=== PATIENT | male | born 1955 | race Caucasian/White ===

== ENCOUNTER 2021-04-20 09:32 | Day surgery (SDC) | payer MEDICARE, MEDICAID, SELFPAY ==
[2021-04-20 09:49] VITALS: BP 130/93; PULSE 83; RESP 16; TEMP 36.3; O2SAT 97
--- NOTE | 2021-04-20 09:56 | W.ANESPRE ---
General Info Date of Service Date Performed: 04/20/21 Height: 6 ft 1 in Weight: 108 kg Body Mass Index (BMI): 31.4 Surgical Procedure: Operation Date: 04/20/21 12:40 Proposed Procedures Side Surgeon p Cataract Extraction with IOL Implant Left Juan Calles MD Meds Allergies and Home Medications Allergies Allergy/AdvReac Type Severity Reaction Status Date / Time No Known Allergies Allergy Unverified 04/20/21 09:47 Home Medication Medication Instructions Recorded albuterol sulfate [ProAir HFA] 2 puff INHALATION Q3H PRN 04/16/21 famotidine 40 mg PO DAILY 04/16/21 ibuprofen 800 mg PO TID PRN 04/16/21 Current Visit Medications: Current Medications Generic Name Dose Route Start Last Admin Trade Name Freq PRN Reason Stop Dose Admin Acetaminophen 1,000 mg 04/20/21 06:00 Acetaminophen 500 Mg Tab PO Q4H PRN PRN Miscellaneous Medication 0 ml 04/20/21 06:00 Prednisolone 1%, Moxifloxacin 0.5%, Nepafenac 0.1% 5ml Btl OS DIRECTED BINTA Miscellaneous Medication 0 ml 04/20/21 06:00 Tropicam./Phenyleph. (1/2.5%) 5 Ml Btl OS DIRECTED BINTA Tetracaine HCl 0 ml 04/20/21 06:00 Tetracaine 0.5% 4 Ml Btl OS DIRECTED BINTA PFSH Active Problems Active Problems: Problem Status Onset Code Posterior subcapsular age-related cataract of left eye H25.042 Nuclear sclerotic cataract of left eye H25.12 Cortical cataract of left eye H26.9 Medical History Medical History Cervical radiculopathy Fissure in skin Foot callus GERD (gastroesophageal reflux disease) Hypertensive disorder Legally blind Low back pain Melanocytic nevus Mild intermittent asthma Plantar fasciitis Screening for malignant neoplasm of prostate Spinal stenosis Surgical History Surgical History History of arthroscopic knee surgery History of circumcision Hx of colonoscopy Tobacco Smoking/Tobacco Use Status: Former Tobacco Use Alcohol Alcohol Intake: never Substance Use Substance use: Daily Substance use type: marijuana Details: medically marijuana card Vital Signs and Lab Results Vital Signs Most Recent Vital Signs in EMR: Most Recent Vital Signs Temp Pulse Resp BP Pulse Ox 36.3 C L 83 16 130/93 H 97 04/20/21 09:49 04/20/21 09:49 04/20/21 09:49 04/20/21 09:49 04/20/21 09:49 Lab Results Blood Type / Crossmatch: No Data to Display Complete Blood Count: No Data to Display Complete Metabolic Panel: No Data to Display Liver Function Panel: No Data to Display Coagulation Panel: No Data to Display Cardiac Panel: No Data to Display Arterial Blood Gas: No Data to Display Venous Blood Gas: No Data to Display Pancreas Panel: No Data to Display Thyroid Panel: No Data to Display Infectious Disease: No Data to Display Blood Cultures: No Data to Display Toxicology Panel: No Data to Display Anesthesia Assessment and Plan Anesthesia History Personal History: No History of Anesthesia Complications Family History: No Family History of Anesthesia Complications Exercise Tolerance Exercise Tolerance: Metabolic Equivalents>4 Cardiac & Pulmonary Exam Cardiac Exam: Normal S1/S2 Heart Sounds Pulmonary Exam: Clear Bilateral Breath Sounds Airway Exam Known Difficult Airway: No Mallampati Class: 2 Mouth Opening: Normal (> 3cm) Thyromental Distance: Greater than 3 cm Neck Range of Motion: Full ROM Neck Circumference: Normal Teeth Condition: Normal Dentition ASA Classification ASA Score: ASA 2 Emergency Case?: No NPO Status NPO Status: NPO Clears >2 hours, Solids >8 hours Anesthesia Plan Resuscitation Status: Full Code Anesthesia Technique: MAC Anesthesia Airway Planned: Natural Airway Monitors Used: Standard Monitors Preoperative Comments:: 66 yo male for cataract removal. discussed MKO, would not like one.
[2021-04-20] MEDS: Tropicam./Phenyleph. (1/2.5%) 5 ML BTL OS ×3 (10:12→10:22)
[2021-04-20 10:49] VITALS: BMI 31.4
[2021-04-20] MEDS: Tetracaine 0.5% 4 ML BTL OS (10:55)
[2021-04-20] MEDS: Povidone-Iodine Ophth 30 ML BTL (10:56)
[2021-04-20] MEDS: Lidocaine 2% Jelly 6 ML SYR (10:56)
[2021-04-20] MEDS: Lidocaine 1% Pres-Free 5 ML VIAL (11:01)
[2021-04-20] MEDS: Duovisc Viscoelastic System EACH 1 EACH (11:02)
[2021-04-20] MEDS: Balanced Salt Soln.-PLUS 500 ML BAG (11:02)
[2021-04-20] MEDS: Trypan Blue 0.06% 0.5 ML SYR (11:03)
--- NOTE | 2021-04-20 11:32 | W.PM.DSUDISC ---
Discharge Plan Disposition Patient Disposition: HOME Condition: Good Discharge Details Attending Provider: Juan Calles Primary Care Provider: Yassine Bacon Home Meds and New Rx's Prescriptions: No Action ibuprofen 800 mg Tablet 800 mg PO TID PRNRF: 0 famotidine 40 mg Tablet 40 mg PO DAILY RF: 0 albuterol sulfate [ProAir HFA] 90 mcg/actuation Hfa Aerosol Inhaler 2 puff INHALATION Q3H PRNRF: 0 Discharge Instructions Stand Alone Forms: Post-op Topical Cataract, Patrick Anders (DSU) Discharge Orders Discharge Orders: Discharge Order (Routine); Ordered 04/20/21 Ordered By: Juan Calles DS: Diagnosis Discharge Diagnosis (1) Posterior subcapsular age-related cataract of left eye: Status: Resolved (2) Nuclear sclerotic cataract of left eye: Status: Resolved (3) Cortical cataract of left eye: Status: Resolved
[2021-04-20 11:39] VITALS: BP 139/90; PULSE 79; RESP 16; TEMP 36.4; O2SAT 100
--- NOTE | 2021-04-20 11:45 | ROE_ITS ---
Date of service: 04/20/21 Time of Service: 11:45 Operative Note Operative Note DATE OF PROCEDURE: 04/20/21 PRE-OP DIAGNOSIS: Nuclear/cortical/posterior subcapsular cataract, left eye Poor red reflex, left eye POST-OP DIAGNOSIS: same PROCEDURE: Cataract extraction using phacoemulsification with intraocular lens implant, left eye, using capsular staining with Vision Blue SURGEON: Juan Calles ANESTHESIA TYPE: Local By Surgeon and MAC Refer to Anesthesia Record COMPLICATIONS: None Patient was transported to: same day Patient's condition: stable Implants: Ravinder Clareon [id number] Indications: Progressive decreased vision due to cataract, left eye, with poor red reflex Procedure Description: CATARACT SURGERY OPERATIVE REPORT PREOPERATIVE DIAGNOSIS: 1. Nuclear/cortical/posterior subcapsular cataract, left eye 2. Poor red reflex secondary to #1 POSTOPERATIVE DIAGNOSIS: Same OPERATION: 1. Cataract extraction using phacoemulsification with posterior chamber intraocular lens implant, left eye. 2. Capsular staining with Vision Blue IOL: IOL Manual Arts Teacher/Model: Ravinder Clareon [id number] IOL Power: + 13.5 diopters IOL Serial Number: [id number] Optic Diameter: 6.0 mm Haptic/Overall Diameter: 13.0 mm PHACO INFO: Ravinder [employer] Vision System with OZil and Active Fluidics Cumulative Dispersed Energy (CDE): 12.65 seconds SURGEON: Juan Calles MD, CLARENCE ANESTHESIA: Monitored Anesthesia Care (MAC), with local sub-tenon's anesthetic infiltration COMPLICATIONS: None SPECIMENS: None INDICATIONS FOR PROCEDURE: The patient is a 66-year-old gentleman with history of myopic astigmatism who has developed asymptomatic nuclear/cortical/posterior subcapsular cataract in the left eye. He is significantly symptomatic from decreased vision that he desires cataract surgery and attempt to improve and maximize his vision. The option of cataract surgery was offered to the patient and he wished to proceed. Due to his astigmatism, a toric intraocular lens was discussed, but he elected to proceed with a monofocal IOL. PROCEDURE: The correct surgical eye was identified and marked as the left eye and the pupil was dilated in the preoperative area using mydriatics and cycloplegics. The dilated pupil size was 8.0 mm. He elected to proceed without oral sedation. The patient was brought to the operating room where cardiopulmonary monitoring was instituted and surgical time-out was performed, c onfirming the correct operative eye and IOL power. Topical anesthesia was administered and ophthalmic povidone-iodine 5% was instilled into the conjunctival fornices. Lidocaine gel was applied to the cornea and the daija-ocular area was prepped with Betadine 10% solution and draped in the usual sterile fashion for intraocular surgery, including an aperture drape. A Tegaderm transparent film dressing was cut in half and used to cover the lashes and lid margins. Care was taken to sequester the lashes and lid margins under the Tegaderm dressing. A lid speculum was placed between the lids of the operative eye and the Brandon-Hadley operating microscope was maneuvered into position. Rony scissors were then used to make a conjunctival buttonhole approximately 6mm posterior to the limbus in the inferonasal quadrant. Blunt dissection was carried out to expose bare sclera, and a blunt-tipped sub-tenon?s anesthesia cannula was introduced and passed posteriorly along the globe where non-p reserved plain lidocaine was injected into posterior sub-Tenon?s space. A sideport knife was used to make a paracentesis port superiorly/superiortemporally. Intraocular phenylephrine/lidocaine was injected int the anterior chamber.. Air was then injected into the anterior chamber, followed by Vision Blue, which was painted over the anterior capsule and then irrigated out using BSS. The anterior chamber was filled with viscoelastic. A 2.4mm keratome knife was used to create a half-thickness groove at the limbus and then to construct a three-plane near-clear corneal tunnel extending 2.0mm into clear cornea at the 3:00 position. A flap was raised on the anterior capsule and capsulorhexis forceps were used to complete a continuous curvilinear capsulorhexis of 5.0 mm. The anterior capsule was noted to be extremely thin. Balanced salt solution was then used to perform cortical cleaving hydrodissection and nuclear hydrodelineation until the lens could be freely rotated within the capsular bag. The lens nucleus was then disassembled and removed within the capsular bag and iris plane using phacoemulsification. Residual cortical material was removed using the 45-degree angled silicone I/A tip with 0.3mm port. The posterior capsule was carefully polished to remove as much residual lens epithelial cells as safely possible. The capsular bag was then inflated and the anterior chamber deepened with viscoelastic. The lens implant described above was inserted into the capsular bag using the DM Torres Martinez Injector. A Kuglen hook was used to dial the IOL into position. Residual viscoelastic was then removed first from posterior to the IOL, then from the anterior chamber using the I/A handpiece. The lens implant was noted to center nicely within the capsular bag. The incisions were stromally hydrated, and the anterior chamber was reformed using BSS. Then 0.5cc of moxifloxacin 1.0mg/ml were injected into the capsular bag and anterior chamber. The incisions were checked with a Weck spear and found to be secure. Several drops of ophthalmic povidone-iodine 5% were then applied to the eye followed by two drops of Imprimis combination prednisolone/moxifloxacin/nepafenac solution. The drapes were removed and a clear plastic protective eye shield was placed over the eye. The patient was then returned to Same Day Surgery in stable condition.
--- NOTE | 2021-04-20 13:02 | W.ANESPOSTOP ---
Postoperative Evaluation Date, Time and Location Date Performed: 04/20/21 Time Performed: 11:39 Patient Location: Day Surgery Unit Vital Signs Most Recent Imported Vital Signs: Most Recent Vital Signs Temp Pulse Resp BP Pulse Ox 36.4 C L 79 16 139/90 100 04/20/21 11:39 04/20/21 11:39 04/20/21 11:39 04/20/21 11:39 04/20/21 11:39 Pain Score Most Recent Pain Score: Most Recent Pain Score Pain Level 0 04/20/21 11:39 Assessment Mental Status: Awake (Alert & Oriented to Patient Baseline) Airway and Respiratory Function: Patent airway with normal (patient baseline) respiratory exam Cardiovascular Function: Hemodynamically Stable Hydration Status: Adequately Hydrated Nausea & Vomiting: No Nausea or Vomiting Pain: Pt. Denies Any Pain Peripheral Nerve Block: Patient did not receive a nerve block
== END 2021-04-20 12:40 | disposition home or self-care (01) ==
PROVIDERS: PCP Family Medicine; Visit Provider Ophthalmology
PROC: (CPT 66984; principal; 2021-04-20 12:30)
DX: H25.042 Posterior subcapsular polar age-related cataract, left eye (principal)
CPT/HCPCS: 66984; V2632

== ENCOUNTER 2021-05-04 06:42 | Day surgery (SDC) | payer MEDICARE, MEDICAID, SELFPAY ==
[2021-05-04] MEDS: Tropicam./Phenyleph. (1/2.5%) 5 ML BTL OD ×3 (06:53→07:05)
[2021-05-04 06:56] VITALS: BP 130/94; PULSE 71; RESP 16; TEMP 36.6; O2SAT 99
--- NOTE | 2021-05-04 07:16 | ANES.PREOP_ITS ---
General Info Date of Service Date Performed: 05/04/21 Height: 6 ft 1 in Weight: 108.9 kg Body Mass Index (BMI): 31.6 Surgical Procedure: Operation Date: 05/04/21 07:40 Proposed Procedures Side Surgeon p Cataract Extraction with IOL Implant Right Juan Calles MD Meds Allergies and Home Medications Allergies Allergy/AdvReac Type Severity Reaction Status Date / Time No Known Allergies Allergy Unverified 05/04/21 06:50 Home Medication Medication Instructions Recorded albuterol sulfate [ProAir HFA] 2 puff INHALATION Q3H PRN 04/16/21 famotidine 40 mg PO DAILY 04/16/21 ibuprofen 800 mg PO TID PRN 04/16/21 Current Visit Medications: Current Medications Generic Name Dose Route Start Last Admin Trade Name Freq PRN Reason Stop Dose Admin Acetaminophen 1,000 mg 05/04/21 06:00 Acetaminophen 500 Mg Tab PO Q4H PRN PRN Miscellaneous Medication 0 ml 05/04/21 06:00 Prednisolone 1%, Moxifloxacin 0.5%, Nepafenac 0.1% 5ml Btl OD DIRECTED BINTA Miscellaneous Medication 0 ml 05/04/21 06:00 05/04/21 07:05 Tropicam./Phenyleph. (1/2.5%) 5 Ml Btl OD 1 drp DIRECTED BINTA Administration Tetracaine HCl 0 ml 05/04/21 06:00 Tetracaine 0.5% 4 Ml Btl OD DIRECTED BINTA PFSH Active Problems Active Problems: Problem Status Onset Code Cortical cataract of left eye H26.9 Nuclear sclerotic cataract of left eye H25.12 Posterior subcapsular age-related cataract of left eye H25.042 Nuclear sclerotic cataract of right eye H25.11 Cortical cataract of right eye H26.9 Medical History Medical History Cervical radiculopathy Fissure in skin Foot callus GERD (gastroesophageal reflux disease) Hypertensive disorder Legally blind Low back pain Melanocytic nevus Mild intermittent asthma Plantar fasciitis Screening for malignant neoplasm of prostate Spinal stenosis Surgical History Surgical History History of arthroscopic knee surgery History of cataract surgery History of circumcision Hx of colonoscopy Tobacco Smoking/Tobacco Use Status: Former Tobacco Use Alcohol Alcohol Intake: never Substance Use Substance use: Daily Substance use type: marijuana Details: medically marijuana card Vital Signs and Lab Results Vital Signs Most Recent Vital Signs in EMR: Most Recent Vital Signs Temp Pulse Resp BP Pulse Ox 36.6 C 71 16 130/94 H 99 05/04/21 06:56 05/04/21 06:56 05/04/21 06:56 05/04/21 06:56 05/04/21 06:56 Lab Results Blood Type / Crossmatch: No Data to Display Complete Blood Count: No Data to Display Complete Metabolic Panel: 2 No Data to Display Liver Function Panel: No Data to Display Coagulation Panel: No Data to Display Cardiac Panel: No Data to Display Arterial Blood Gas: No Data to Display Venous Blood Gas: No Data to Display Pancreas Panel: No Data to Display Thyroid Panel: No Data to Display Infectious Disease: No Data to Display Blood Cultures: No Data to Display Toxicology Panel: No Data to Display Anesthesia Assessment and Plan Anesthesia History Personal History: No History of Anesthesia Complications Family History: No Family History of Anesthesia Complications Exercise Tolerance Exercise Tolerance: Metabolic Equivalents>4 Pertinent Negatives Pertinent Negatives: No Symptoms of GERD, No Major Cardiovascular Symptoms or Complaints, No Major Pulmonary Symptoms or Complaints and No History of CVA/TIA Cardiac & Pulmonary Exam Cardiac Exam: Normal S1/S2 Heart Sounds Pulmonary Exam: Clear Bilateral Breath Sounds Airway Exam Known Difficult Airway: No Mallampati Class: 2 Mouth Opening: Normal (> 3cm) Thyromental Distance: Greater than 3 cm Neck Range of Motion: Full ROM Neck Circumference: Normal Teeth Condition: Normal Dentition ASA Classification ASA Score: ASA 2 Emergency Case?: No NPO Status NPO Status: NPO Clears >2 hours, Solids >8 hours Anesthesia Plan Resuscitation Status: Full Code Anesthesia Technique: MAC Anesthesia Airway Planned: Natural Airway Monitors Used: Standard Monitors
[2021-05-04 07:17] VITALS: BMI 31.6
[2021-05-04] MEDS: Tetracaine 0.5% 4 ML BTL OD (07:24)
[2021-05-04] MEDS: Povidone-Iodine Ophth 30 ML BTL (07:24)
[2021-05-04] MEDS: Lidocaine 1% Pres-Free 5 ML VIAL (07:31)
[2021-05-04] MEDS: Trypan Blue 0.06% 0.5 ML SYR (07:31)
[2021-05-04] MEDS: Duovisc Viscoelastic System EACH 1 EACH (07:36)
[2021-05-04] MEDS: Balanced Salt Soln.-PLUS 500 ML BAG (07:36)
[2021-05-04] MEDS: Lidocaine 2% Jelly 6 ML SYR (07:37)
--- NOTE | 2021-05-04 07:57 | W.ANESPOSTOP ---
Postoperative Evaluation Date, Time and Location Date Performed: 05/04/21 Time Performed: 07:57 Patient Location: Day Surgery Unit Vital Signs Most Recent Imported Vital Signs: Most Recent Vital Signs Temp Pulse Resp BP Pulse Ox 36.6 C 71 16 130/94 H 99 05/04/21 06:56 05/04/21 06:56 05/04/21 06:56 05/04/21 06:56 05/04/21 06:56 Pain Score Most Recent Pain Score: Most Recent Pain Score Pain Level 0 05/04/21 06:56 Assessment Mental Status: Awake (Alert & Oriented to Patient Baseline) Airway and Respiratory Function: Patent airway with normal (patient baseline) respiratory exam Cardiovascular Function: Hemodynamically Stable Hydration Status: Adequately Hydrated Nausea & Vomiting: No Nausea or Vomiting Pain: Pt. Denies Any Pain Peripheral Nerve Block: Patient did not receive a nerve block
[2021-05-04 08:00] VITALS: BP 144/97; PULSE 69; RESP 16; TEMP 36.5; O2SAT 99
--- NOTE | 2021-05-04 08:00 | W.PM.DSUDISC ---
Discharge Plan Disposition Patient Disposition: HOME Condition: Good Discharge Details Attending Provider: Juan Calles Primary Care Provider: Yassine Bacon Home Meds and New Rx's Prescriptions: No Action ibuprofen 800 mg Tablet 800 mg PO TID PRNRF: 0 famotidine 40 mg Tablet 40 mg PO DAILY RF: 0 albuterol sulfate [ProAir HFA] 90 mcg/actuation Hfa Aerosol Inhaler 2 puff INHALATION Q3H PRNRF: 0 Discharge Instructions Stand Alone Forms: Post-op Topical Cataract, Patrick Anders (DSU) Discharge Orders Discharge Orders: Discharge Order (Routine); Ordered 05/04/21 Ordered By: Juan Calles DS: Diagnosis Discharge Diagnosis (1) Nuclear sclerotic cataract of right eye: Status: Resolved (2) Cortical cataract of right eye: Status: Resolved
--- NOTE | 2021-05-04 08:01 | W.PM.OP ---
Date of service: 05/04/21 Time of Service: 08:02 Operative Note Operative Note DATE OF PROCEDURE: 05/04/21 PRE-OP DIAGNOSIS: Nuclear/cortical cataract, right eye Poor red reflex, right eye secondary to cataract POST-OP DIAGNOSIS: same PROCEDURE: Cataract extraction using phacoemulsification with intraocular lens implant, right eye Capsular staining using vision Blue, right eye SURGEON: Juan Calles ANESTHESIA TYPE: Local By Surgeon and MAC Refer to Anesthesia Record ESTIMATED BLOOD LOSS: 0 PATHOLOGY: none sent COMPLICATIONS: None Patient was transported to: same day Patient's condition: stable Implants: Ravinder Clareon [id number] Indications: Progressive decreased vision due to cataract, right eye Procedure Description: CATARACT SURGERY OPERATIVE REPORT PREOPERATIVE DIAGNOSIS: Nuclear/cortical cataract, right eye Poor red reflex, right eye secondary to cataract POSTOPERATIVE DIAGNOSIS: Same OPERATION: Cataract extraction using phacoemulsification with posterior chamber intraocular lens implant, right eye. IOL: IOL Biomechanical Engineer/Model: Ravinder Clareon [id number] IOL Power: + 13.5 diopters IOL Serial Number: [id number] Optic Diameter: 6.0mm Haptic/Overall Diameter: 13.0mm PHACO INFO: Ravinder [employer] Vision System with OZil and Active Fluidics Cumulative Dispersed Energy (CDE): 9.15 seconds SURGEON: Juan Calles MD, CLARENCE ANESTHESIA: Monitored Anesthesia Care (MAC), with local sub-tenon's anesthetic infiltration COMPLICATIONS: None SPECIMENS: None INDICATIONS FOR PROCEDURE: The patient is a 66-year-old gentleman with history of high myopia and astigmatism who has developed symptomatic bilateral cataracts. He was significantly symptomatic that he desired cataract surgery and attempt to improve and maximize his vision. He has already undergone cataract surgery in the left eye and is doing well postoperatively. He now presents for cataract surgery in the right eye. PROCEDURE: The correct surgical eye was identified and marked as the right eye and the pupil was dilated in the preoperative area using mydriatics and cycloplegics. The dilated pupil size was 8.0 mm. Oral sedation was administered in the form of an Imprimis MKO Melt (midazolam 3mg/ketamine 25mg/ondansetron 2mg). The patient was brought to the operating room where cardiopulmonary monitoring was instituted and surgical time-out was performed, confirming the correct operative eye and IOL power. Topical anesthesia was administered and ophthalmic povidone-iodine 5% was instilled into the conjunctival fornices. Lidocaine gel was applied to the cornea and the daija-ocular area was prepped with Betadine 10% solution and draped in the usual sterile fashion for intraocular surgery, including an aperture drape. A Tegaderm transparent film dressing was cut in half and used to cover the lashes and lid margins. Care was taken to sequester the lashes and lid margins under the Tegaderm dressing. A lid speculum was placed between the lids of the operative eye and the Brandon-Hadley operating microscope was maneuvered into position. Rony scissors were then used to make a conjunctival buttonhole approximately 6mm posterior to the limbus in the inferonasal quadrant. Blunt dissection was carried out to expose bare sclera, and a blunt-tipped sub-tenon?s anesthesia cannula was introduced and passed posteriorly along the globe where non-preserved plain lidocaine was injected into posterior sub-Tenon?s space. A sideport knife was used to make a paracentesis port inferiortemporally. VisionBlue was then injected into the anterior chamber and allowed to sit for 20 to 30 seconds. Intraocular phenylephrine/lidocaine was injected into the anterior chamber. The anterior chamber was then filled with viscoelastic. A 2.4mm keratome knife was used to create a half-thickness groove at the limbus and then to construct a three-plane near-clear corneal tunnel extending 2.0mm into clear cornea in the superiortemporal position. . A flap was raised on the anterior capsule and capsulorhexis forceps were used to complete a continuous curvilinear capsulorhexis of 5.0 mm. Balanced salt solution was then used to perform cortical cleaving hydrodissection and nuclear hydrodelineation until the lens could be freely rotated within the capsular bag. The lens nucleus was then disassembled and removed within the capsular bag and iris plane using phacoemulsification. Residual cortical material was removed using the I/A handpiece. The posterior capsule was carefully polished to remove as much residual lens epithelial cells as safely possible. The capsular bag was then inflated and the anterior chamber deepened with viscoelastic. The lens implant described above was inserted into the capsular bag using the Ravinder [employer] Injector. A Kuglen hook was used to dial the IOL into position. Residual viscoelastic was then removed first from posterior to the IOL, then from the anterior chamber using the I/A handpiece. The lens implant was noted to center nicely within the capsular bag. The incisions were stromally hydrated, and the anterior chamber was reformed using BSS. Then 0.5cc of moxifloxacin 1.0mg/ml were injected into the capsular bag and anterior chamber. The incisions were checked with a Weck spear and found to be secure. Several drops of ophthalmic povidone-iodine 5% were then applied to the eye followed by two drops of Imprimis combination prednisolone/moxifloxacin/nepafenac solution. The drapes were removed and a clear plastic protective eye shield was placed over the eye. The patient was then returned to Same Day Surgery in stable condition.
== END 2021-05-04 09:55 | disposition home or self-care (01) ==
PROVIDERS: PCP Family Medicine; Visit Provider Ophthalmology
PROC: (CPT 66984; principal; 2021-05-04 07:30)
DX: H25.11 Age-related nuclear cataract, right eye (principal); K21.9 Gastro-esophageal reflux disease without esophagitis; I10 Essential (primary) hypertension
CPT/HCPCS: 66984; V2632